=== PATIENT | female | born 1980 | race Caucasian/White ===

== ENCOUNTER 2018-11-21 18:29 | Emergency (ER) | payer OTHER, SELFPAY ==
[2018-11-21 18:30] VITALS: BP 151/85; PULSE 87; RESP 16; TEMP 36.6; O2SAT 100; BMI 27.1
--- NOTE | 2018-11-21 19:13 | CT_ITS ---
STUDY: CT ABDOMEN AND PELVIS WITHOUT CONTRAST REASON FOR EXAM: Female, 38 years old. Lower back pain RADIATION DOSAGE (If Supplied By Facility): CTDIvol = ( 8.99 ) mGy, DLP = ( 451.65 ) mGycm TECHNIQUE: Transaxial images were obtained from the dome of the diaphragm to the symphysis pubis without oral contrast, and without intravenous contrast. Sagittal and coronal images were reconstructed. Individualized dose optimization techniques were used for this CT. COMPARISON: 05/10/2017 FINDINGS: Evaluation of the abdominal viscera is limited in the absence of intravenous contrast. The visualized lung bases are clear. The visualized portions of the heart and pericardium are within normal limits. The patient is status post cholecystectomy. The liver demonstrates an unremarkable unenhanced appearance. The spleen is normal in size. The pancreas demonstrates an unremarkable unenhanced appearance. The adrenal glands are within normal limits. There is a 3 mm nonobstructing stone in the collecting system of the right kidney. There are no additional urinary stones. There is no hydronephrosis. Normal visualized stomach. There is no bowel obstruction or inflammation. The appendix is visualized and appears normal. The aorta is normal in caliber. There is a 3 cm right adnexal cyst. There is no abdominal or pelvic free air, free fluid, fluid collection or lymphadenopathy. There are no destructive osseous lesions. CT/Abdomen/Pelvis without Cont IMPRESSION: 3 cm right adnexal cyst. If indicated, further evaluation with ultrasound can be performed. 3 mm nonobstructing stone in the collecting system of the right kidney. No additional urinary calculi. No hydronephrosis. No bowel obstruction or inflammation. Normal appendix. Electronically Signed: Anton Dale, at 21:52 EST Tel , Service support ,
[2018-11-21] MEDS: Ondansetron 4 MG/2 ML Vial IV (19:22)
[2018-11-21] MEDS: 0.9% Normal Saline 1,000 ML 250 ML IV (19:22)
[2018-11-21] MEDS: Ketorolac 30 MG/ML Syringe IV (19:22)
[2018-11-21 19:29] LABS: Bacteria 0 SEEN /hpf (None Seen); White Blood Cells 0 SEEN /hpf (0-5)
[2018-11-21 19:30] LABS: Color, Urine Yellow (Yellow); Glucose, Dipstick Normal (Normal); Ketone-Dipstick Negative (Negative); Leukocyte Esterase-Dipstick Negative /ul (Negative); Nitrite-Dipstick Negative (Negative); Occult Blood-Urine 25 /ul (Negative); Protein-Dipstick Negative (Negative); Urine Bilirubin Dipstick Negative (Negative); Urine Clarity Clear (Clear); Urine Urobilinogen Normal (Normal)
[2018-11-21 19:31] LABS: Absolute Lymphocyte Count 3.23 X10^3/ul (0.83-4.51); Absolute Neutrophil Count 7.1 X10^3/uL (2.0-7.7); Basophil# 0.04 X10^3/uL; Basophil% 0.4 % (0-1); Eosinophils% 1.8 % (0-5); Hematocrit 40.1 % (37-47); Hemoglobin 12.9 g/dl (12.0-15.0); Lymphocyte # 3.23 X10^3/ul (4.0); Mean Corp Hgb Conc 32.2 g/gl (32-36); Mean Corpuscular Hgb 29.1 pg (27.0-32.0); Mean Corpuscular Volume 90.3 fL (81-99); Mean Platelet Vol. 11.3 fl (6.2-12.0); Monocyte# 0.56 X10^3/uL; Neutrophil # 7.11 X10^3/uL (2.7-7.7); Neutrophil % 63.7 % (47-70); Platelet Count 243 K/mm3 (150-450); RBC Distribution Width CV 12.8 % (11.6-14.6); RBC Distribution Width SD 42.1 fl (35.1-43.9); Red Blood Count 4.44 M/mm3 (4.2-5.4); White Blood Count 11.2 K/mm3 (4.4-11.0)
[2018-11-21 19:33] LABS: POSITIVE COUNT NO; POSITIVE DIFFERENTIAL NO; POSITIVE MORPHOLOGY NO
[2018-11-21 19:39] LABS: Mucous, Urine RARE /hpf (<or=2+); Red Blood Cells-Urine 0-5 SEEN /hpf (0-5); Squamous Epithelial Cells - UA 0-5 SEEN /hpf (5-10)
[2018-11-21 19:39] LABS: Anion Gap 9 (5-15); BUN 17 mg/dL (7-18); BUN/Creat Ratio 20.9 RATIO (10-20); Chloride 105 mmol/L (98-107); Creatinine, Serum 0.81 mg/dL (0.55-1.02); EST Glomerular Filtration Rate 85 mL/min (>60); Est Glom Filt Rate - Afr Amer 102 mL/min (>60); Estimated Creatinine Clearance 89.89 ml/min; Glucose 89 mg/dL (74-106); Potassium 3.7 mmol/L (3.5-5.1); Sodium Level 141 mmol/L (136-145)
[2018-11-21 20:32] LABS: Pregnancy, Serum, hCG Quali. NEGATIVE Negative (0-9 Nonpreg)
--- NOTE | 2018-11-21 22:06 | ED.DCSUM_ITS ---
- ER Visit Summary Date of Service: 11/21/18 Chief Complaint: Abdominal and flank pain History of Present Illness: The patient is a 38 F who presents with flank and abdominal pain that began today. Patient describes pain as sharp. Patient states the pain is over the lower abdomen and both flanks. Patient admits to some nausea but denies any vomiting. Patient denies any dysuria or hematuria. Patient denies any diarrhea, melena, or hematochezia. Patient admits to subjective chills but did not take her temperature. Physical Examination: Vital signs are stable. Patient is afebrile. Patient is in no acute distress. Oral mucosa is pink and moist. Neck is supple. Trachea is midline. No JVD noted. Heart was regular rate and rhythm. Lungs are clear and equal bilateral. Abdomen is soft. There is some lower abdominal tenderness. There is no rebound or guarding noted. Cranial nerves II through XII are intact. There are no focal motor or sensory deficits noted. The remaining physical exam is within normal limits. Test Results: CT scan of the abdomen and pelvis shows a right renal calculus but no obstruction. There is a 3 cm right adnexal cyst. The appendix is normal. CBC shows a white blood cell count of 11.2. Basic metabolic profile and urinalysis were normal. Emergency Department Course and Treatment: Patient was given IV fluids, Toradol, and Zofran. Patient was instructed to follow-up with her primary care physician in 5-7 days. Patient was instructed to drink plenty of fluids. Patient was instructed to return if worse in any way. Patient understood and was agreeable with the plan. All questions were answered. Disposition: Discharge home Impression: Abdominal pain This note was generated with [employer] dictation software. It may contain incorrect words, spelling, and punctuation that were not noted in review of the chart prior to signing ED Disposition - Plan for ED Patient: Disposition: Home or Assisted Living Diagnosis: Abdominal pain Instructions: ED Abdominal Pain Unkn Cause Referrals: Naman Paez MD [Primary Care Provider] -
[2018-11-21 22:15] VITALS: BP 128/70; PULSE 77; RESP 16
== END 2018-11-21 22:15 | disposition home or self-care (01) ==
PROVIDERS: Emergency Provider Emergency Medicine; Family Provider Family Medicine; PCP Family Medicine
DX: N20.0 Calculus of kidney (principal); N85.8 Other specified noninflammatory disorders of uterus; R10.30 Lower abdominal pain, unspecified; K21.9 Gastro-esophageal reflux disease without esophagitis; F41.9 Anxiety disorder, unspecified; Z72.0 Tobacco use
CPT/HCPCS: 74176; 80048; 81001; 84703; 85025; 96361; 96374; 96375; 99283; J7030; A4216; J2405

== ENCOUNTER 2019-08-16 09:27 | Emergency (ER) | payer OTHER, SELFPAY ==
[2019-08-16 09:27] VITALS: BP 105/58; PULSE 105; RESP 20; TEMP 36.3; O2SAT 97; BMI 29.7
--- NOTE | 2019-08-16 09:42 | CT_ITS ---
STUDY: CTA CHEST REASON FOR EXAM: Female, 39 years old. Shortness of breath. RADIATION DOSAGE (If Supplied By Facility): CTDIvol = ( 13.10 ) mGy, DLP = ( 443.48 ) mGycm TECHNIQUE: The examination was performed with the intravenous administration of IV Isovue 370 100. Post-processing of the angiographic images was performed, with multiplanar reformation. Individualized dose optimization techniques were used for this CT. COMPARISON: None. FINDINGS: There is limited enhancement of the main pulmonary artery and right and left pulmonary arteries. There is limited enhancement of the bilateral peripheral pulmonary arteries. There is no demonstrated pulmonary embolism. Normal thoracic aorta and visualized great vessels. There is no demonstrated aortic dissection. Normal heart and pericardium. Normal mediastinum. Normal hilar regions. Normal visualized trachea and bronchi. The lungs are well expanded. There are no pulmonary infiltrates. There is linear subsegmental atelectasis in the right lower lobe. There are no pleural effusions. Normal chest wall structures. The osseous structures is no acute process. There is a small sclerotic lesion in the vertebral body of T7 likely due to bone island. Normal visualized upper abdomen. CT/CTA Chest W/WO Contrast IMPRESSION: 1. Suboptimal enhancement of the pulmonary arteries. No evidence of pulmonary embolism. 2. Subsegmental atelectatic changes in right lower lobe. 3. No infiltrate or pleural effusions are seen. Electronically Signed: Macho Bray MD at 10:47 EST Tel , Service support ,
[2019-08-16 09:55] LABS: Absolute Lymphocyte Count 1.96 X10^3/uL (0.83-4.51); Absolute Neutrophil Count 5.2 X10^3/uL (2.0-7.7); Basophil# 0.05 X10^3/uL; Basophil% 0.6 % (0-1); Eosinophil# 0.16 X10^3/uL; Eosinophils% 2.1 % (0-5); Hemoglobin 14.4 g/dL (12.0-15.0); Lymphocyte # 1.96 X10^3/ul (4.0); Lymphocyte % 25.3 % (19-41); Mean Corp Hgb Conc 33.5 g/dL (32-36); Mean Corpuscular Hgb 29.2 pg (27.0-32.0); Mean Corpuscular Volume 87.2 fL (81-99); Monocyte# 0.34 X10^3/uL; Monocyte% 4.4 % (0-10); NRBC Flagged by Analyzer 0 % (0-5); Neutrophil # 5.23 X10^3/uL (2.7-7.7); Neutrophil % 67.3 % (47-70); Platelet Count 272 K/mm3 (150-450); RBC Distribution Width CV 12.3 % (11.6-14.6); RBC Distribution Width SD 38.9 fl (35.1-43.9); Red Blood Count 4.93 M/mm3 (4.2-5.4); White Blood Count 7.8 K/mm3 (4.4-11.0)
[2019-08-16 10:04] VITALS: BP 107/75; PULSE 89; RESP 20; TEMP 36.3; O2SAT 97
[2019-08-16 10:07] LABS: Anion Gap 7 (5-15); BUN 9 mg/dL (7-18); BUN/Creat Ratio 11.1 RATIO (10-20); Calcium,Total 9.4 mg/dL (8.5-10.1); Chloride 108 mmol/L (98-107); Creatinine, Serum 0.81 mg/dL (0.55-1.02); EST Glomerular Filtration Rate 84 mL/min (>60); Est Glom Filt Rate - Afr Amer 102 mL/min (>60); Estimated Creatinine Clearance 85.57 ml/min; Glucose 100 mg/dL (74-106); Potassium 3.7 mmol/L (3.5-5.1); Sodium Level 140 mmol/L (136-145)
[2019-08-16] MEDS: 0.9% Normal Saline 1,000 ML 150 ML IV (10:09)
--- NOTE | 2019-08-16 12:21 | ED.VIS.GEN ---
History of Present Illness Chief Complaint: Shortness of Breath Detail of Chief Complaint: Cough and shortness of breath Informant: Patient Onset: Weeks Context: Gradual Onset Timing: Waxes and wanes Current Severity: Moderate Maximum Severity: Moderate Narrative: Patient presents with concerns of shortness of breath and pneumonia. She is had a cough for the past 2 weeks. Approximately 4 days ago she started feeling worse. She was seen by her doctor and diagnosed with pneumonia. She states there was a small infiltrate noted on her x-ray. She was treated with Z-Celio, prednisone, and an inhaler. She is also given acyclovir for cold sore. Patient states that she felt better yesterday but today symptoms were worse again. She denies coughing up any sputum. She only had fever on one occasion. She does have a history of smoking and states that she previously used a vape pen. She last used her vape pen 4 days ago. - Past Medical History (1) GERD (gastroesophageal reflux disease) Status: Chronic (2) Depression Status: Chronic Past Medical History - Allergies and Home Meds Allergies/Adverse Reactions: Allergies bupropion [From Wellbutrin] Adverse Reaction (Verified 08/16/19 09:29) Low blood pressure Primary Care Physician: Naman Paez MD [Primary Care Provider] - 3-5 Days if not improving Prior records reviewed: Yes Smoking Status: Current every day smoker Review of Systems General: Reports: Fever - On one occasion. Denies: Chills Eyes: Denies: Visual changes - bilaterally ENT: Denies: Bilateral ear pain, Sore throat Cardiovascular: Denies: Chest pain Respiratory: Reports: Dyspnea, Cough. Denies: Sputum Gastrointestinal: Denies: Abdominal pain, Nausea, Vomiting, Diarrhea Genitourinary: Denies: Dysuria Musculoskeletal: Denies: Swelling, Extremity Pain Skin: Denies: Rash Neurological: Denies: Headache Allergy: Denies: Uticaria Physical Exam Vital Signs/Narrative: Vital Signs Temp Pulse Resp BP Pulse Ox 08/16/19 10:04 97.4 F L 89 20 H 107/75 97 08/16/19 09:27 97.4 F L 105 H 20 H 105/58 L 97 Inital Vital Signs reviewed: Yes General: Well nourished, Well developed Head: Normocephalic ENT: Moist mucous membranes Neck: Supple Cardiovascular: Regular rate, Regular rhythm Respiratory: No distress, CTA bilaterally Abdomen: Soft, Nontender, Normal bowel sounds Back: Nontender Extremities: Nontender, No edema Skin: Normal color, No rash Neurological: Alert, Oriented x3 Psychological: Normal affect Diagnostic/Tx/Re-eval Impressions Chest CTA 08/16/19 09:42 IMPRESSION: 1. Suboptimal enhancement of the pulmonary arteries. No evidence of pulmonary embolism. 2. Subsegmental atelectatic changes in right lower lobe. 3. No infiltrate or pleural effusions are seen. Electronically Signed: Macho Bray MD at 10:47 EST Tel , Service support , 08/16/19 09:42 CTA Chest W/WO Contrast [CT] Stat Laboratory Results 08/16/19 08/16/19 09:50 09:50 WBC 7.8 RBC 4.93 Hgb 14.4 Hct 43.0 MCV 87.2 MCH 29.2 MCHC 33.5 RDW Std Deviation 38.9 RDW Coeff of Allison 12.3 Plt Count 272 MPV 11.0 Immature Gran % (Auto) 0.300 Neut % (Auto) 67.3 Lymph % (Auto) 25.3 [place] % (Auto) 4.4 Eos % (Auto) 2.1 Baso % (Auto) 0.6 Absolute Neuts (auto) 5.2 Absolute Lymphs (auto) 1.96 Nucleated RBC % 0 Sodium 140 Potassium 3.7 Chloride 108 H Carbon Dioxide 25.0 Anion Gap 7 BUN 9 Creatinine 0.81 Estim Creat Clear Calc 85.57 Est GFR (MDRD) Af Amer 102 Est GFR (MDRD) Non-Af 84 BUN/Creatinine Ratio 11.1 Glucose 100 Calcium 9.4 - Medical Decision Making With the patient's history of using a vape pen was concerned about inflammatory lung reaction. CT of the chest was obtained. There is no evidence of significant lung change. There is no evidence of infiltrate at this time. Test results are discussed with the patient. She is reassured with these findings and will continue her medication course. She will follow-up with her primary care physician. ED Disposition - Plan for ED Patient: Disposition: Home or Assisted Living Diagnosis: Bronchitis Instructions: BRONCHITIS, Antiobiotic Treatment (Adult) Referrals: Naman Paez MD [Primary Care Provider] - 3-5 Days if not improving
[2019-08-16 12:37] VITALS: BP 100/74; PULSE 74; RESP 18; O2SAT 97
== END 2019-08-16 12:40 | disposition home or self-care (01) ==
PROVIDERS: Emergency Provider Emergency Medicine; Family Provider Family Medicine; PCP Family Medicine
DX: J40 Bronchitis, not specified as acute or chronic (principal); J98.11 Atelectasis; F32.9 Major depressive disorder, single episode, unspecified; K21.9 Gastro-esophageal reflux disease without esophagitis; Z79.899 Other long term (current) drug therapy; F17.200 Nicotine dependence, unspecified, uncomplicated
CPT/HCPCS: 71275; 80048; 85025; 96360; 96361; 99284; J7030; Q9967

== ENCOUNTER 2019-10-22 13:06 | Emergency (ER) | payer OTHER, SELFPAY ==
[2019-10-22 13:08] VITALS: BP 113/94; PULSE 107; RESP 18; TEMP 37.3; O2SAT 99; BMI 30.2
--- NOTE | 2019-10-22 13:40 | CT_ITS ---
STUDY: CT ABDOMEN AND PELVIS WITH CONTRAST REASON FOR EXAM: Female, 39 years old. RLQ PAIN/RT HIP PAIN X 3 WEEKS. Prior cholecystectomy. No HTN or diabetes RADIATION DOSAGE (If Supplied By Facility): CTDIvol = ( 15.18 ) mGy, DLP = ( 1033.58 ) mGycm TECHNIQUE: Transaxial images were obtained from the dome of the diaphragm to the symphysis pubis without oral contrast. Oral and amp; IV Gastrografin and amp; 100mL Isovue-300 was administered. Sagittal and coronal images were reconstructed. Individualized dose optimization techniques were used for this CT. COMPARISON: Comparison is made with prior examination dated November 21, 2018. FINDINGS: The visualized lung bases are unremarkable. The visualized portions of the heart are within normal limits. Normal liver. There are surgical clips in the gallbladder fossa consistent with a prior cholecystectomy. Minimally dilated central intrahepatic biliary ducts most likely secondary to the post cholecystectomy state. Normal spleen. Normal pancreas. Normal bilateral adrenal glands. Normal right kidney. Normal left kidney. Normal visualized stomach. Normal small intestine. Normal colon. The appendix is visualized and appears normal. Normal abdominal aorta. Normal inferior vena cava. Normal retroperitoneum. Normal urinary bladder. Small follicles are seen in both ovaries. The largest follicle in the left ovary measures 1.8 cm. The largest follicle in the right ovary measures 1.4 cm. There is a small umbilical hernia containing fat. Small bilateral inguinal lymph nodes. Normal osseous structures. CT/Abdomen/Pelvis WITH Contrast IMPRESSION: Status post cholecystectomy with minimal dilatation of the intrahepatic biliary ducts. Findings suggestive of small bilateral ovarian follicles. Electronically Signed: John Bella, at 15:53 EST , Service support ,
[2019-10-22] MEDS: Morphine 4 MG/ML Syringe IV (14:22)
[2019-10-22] MEDS: Ondansetron 4 MG/2 ML Vial IV ×2 (14:22→15:18)
[2019-10-22] MEDS: 0.9% Normal Saline 1,000 ML 1000 ML IV (14:22)
[2019-10-22 14:26] LABS: Mucous, Urine 0 SEEN /hpf (<or=2+); Red Blood Cells-Urine 0 SEEN /hpf (0-5); White Blood Cells 0 SEEN /hpf (0-5)
[2019-10-22 14:30] LABS: Color, Urine Straw (Yellow); Glucose, Dipstick Normal (Normal); Ketone-Dipstick Negative (Negative); Leukocyte Esterase-Dipstick Negative /ul (Negative); Nitrite-Dipstick Negative (Negative); Occult Blood-Urine 10 /ul (Negative); Protein-Dipstick Negative (Negative); Urine Bilirubin Dipstick Negative (Negative); Urine Clarity Sl. Cloudy (Clear); Urine Urobilinogen Normal (Normal)
[2019-10-22 14:31] LABS: Absolute Lymphocyte Count 2.25 X10^3/uL (0.83-4.51); Absolute Neutrophil Count 7.3 X10^3/uL (2.0-7.7); Basophil# 0.06 X10^3/uL; Basophil% 0.6 % (0-1); Eosinophil# 0.19 X10^3/uL; Eosinophils% 1.9 % (0-5); Hemoglobin 14.8 g/dL (12.0-15.0); Lymphocyte # 2.25 X10^3/ul (4.0); Mean Corp Hgb Conc 32.9 g/dL (32-36); Mean Corpuscular Hgb 29.4 pg (27.0-32.0); Mean Corpuscular Volume 89.5 fL (81-99); Mean Platelet Vol. 11.4 fl (6.2-12.0); Monocyte# 0.41 X10^3/uL; NRBC Flagged by Analyzer 0 % (0-5); Neutrophil # 7.28 X10^3/uL (2.7-7.7); Neutrophil % 71.1 % (47-70); Platelet Count 291 K/mm3 (150-450); RBC Distribution Width CV 12.1 % (11.6-14.6); RBC Distribution Width SD 39.5 fl (35.1-43.9); Red Blood Count 5.03 M/mm3 (4.2-5.4); White Blood Count 10.2 K/mm3 (4.4-11.0)
[2019-10-22 14:41] LABS: Internal QC Validated? YES +Cl - CLEAR BKGD; Pregnancy, Serum, hCG Quali. NEGATIVE Negative
[2019-10-22 14:42] LABS: Anion Gap 4 (5-15); BUN 12 mg/dL (7-18); BUN/Creat Ratio 14.4 RATIO (10-20); Calcium,Total 9.4 mg/dL (8.5-10.1); Chloride 106 mmol/L (98-107); Creatinine, Serum 0.84 mg/dL (0.55-1.02); EST Glomerular Filtration Rate 81 mL/min (>60); Est Glom Filt Rate - Afr Amer 99 mL/min (>60); Estimated Creatinine Clearance 82.51 ml/min; Glucose 95 mg/dL (74-106); Potassium 3.4 mmol/L (3.5-5.1); Sodium Level 138 mmol/L (136-145)
[2019-10-22 14:49] LABS: Bacteria 1+ /hpf (None Seen); Squamous Epithelial Cells - UA 0-5 SEEN /hpf (5-10)
[2019-10-22] MEDS: HYDROmorphone 1 MG/ML Syringe IV (15:19)
--- NOTE | 2019-10-22 15:38 | ED.VISSUMM ---
- ER Visit Summary Date of Service: 10/22/19 Chief Complaint: Groin pain History of Present Illness: The patient is a 39 F who sees Abner Espinosa. She reports she has right hip pain that began 3 weeks ago. States that it is an aching pain that comes and goes. Says lasts hours at a time. Is been constant since yesterday. States is 10 out of 10 at worst and 4-10 currently. Is worsened by walking and movement. Is relieved by rest. Patient reports that last week she had an adjustment by Abner Espinosa in the office and did get significant relief from this. She denies any back pain. No numbness or weakness. No trauma. No fall, MVA, or change in activity. Physical Examination: Vitals: Stable. Afebrile. General: Well-nourished and well-developed. Head: Normocephalic atraumatic. Neck: Supple, no lymphadenopathy. No JVD. Nontender. Cardiovascular: Regular rate and rhythm. No murmurs. Respiratory: No respiratory distress. Clear to auscultation bilaterally. Abdominal: Soft, moderate right lower quadrant tenderness to palpation, moderate tenderness palpation in the right inguinal region. No palpable hernia., nondistended, normal bowel sounds. No guarding, rebound, or peritoneal signs. Back: Nontender. Extremities: Nontender, no edema. No pain with palpation over her right greater trochanter. No pain with internal or external rotation of her hip. Skin: Normal color, no rash. Neurologic: Alert and oriented ?3. Cranial nerves II through XII are intact. Normal strength and sensation. Psych: Normal affect. Test Results: CBC shows segmented for 71. Chem-7 shows potassium of 3.4. UA shows 1+ bacteria. test is negative. Clinical Impression(s) from Imaging Studies Abdomen/Pelvis CT 10/22/19 13:40 IMPRESSION: Status post cholecystectomy with minimal dilatation of the intrahepatic biliary ducts. Findings suggestive of small bilateral ovarian follicles. Electronically Signed: John Bella, at 15:53 EST , Service support , Emergency Department Course and Treatment: Patient was treated with morphine and Zofran IV. She is resting more comfortably. Treatment Plan: Prolonged discussion with patient and her significant other that at this time I do not have an explanation for her pain. She will be discharged with naproxen, Bradley, Zofran. Instructed to follow-up with her primary care physician in 1 to 2 days if not improving. Return to the emergency department for any worsening symptoms. Disposition: To home in improved and stable condition. Impression: 1. Abdominal pain, uncertain cause. This note was generated with [employer] dictation software. It may contain incorrect words, spelling, and punctuation that were not noted in review of the chart prior to signing ED Disposition - Plan for ED Patient: Disposition: Home or Assisted Living Instructions: ABDOMINAL PAIN, Unknown Cause, (Female) Prescriptions: Naproxen [Naprosyn] 500 mg PO BID #14 tab Prescription Printed Hydrocodone Bitart/Apap 5-325 [Bradley 5MG-325MG] 1 tab PO Q4H PRN PRN 2 Days #10 tab PRN Reason: Pain Prescription Printed Ondansetron [Zofran Odt] 4 mg PO Q8H PRN PRN #10 tab PRN Reason: Nausea Prescription Printed Referrals: Naman Paez MD [Primary Care Provider] - 1-2 Days if not improving
[2019-10-22 16:15] VITALS: BP 97/56; PULSE 82; RESP 16; O2SAT 97
== END 2019-10-22 16:29 | disposition home or self-care (01) ==
LOC: ED 13:58
PROVIDERS: Emergency Provider Emergency Medicine; PCP Family Medicine
DX: M25.551 Pain in right hip (principal); R10.31 Right lower quadrant pain; R11.0 Nausea; R68.83 Chills (without fever); Z90.49 Acquired absence of other specified parts of digestive tract; F17.200 Nicotine dependence, unspecified, uncomplicated
CPT/HCPCS: 74177; 80048; 81001; 84703; 85025; 96361; 96374; 96375; 96376; 99284; J7030; Q9967; A4216; J2405

== ENCOUNTER → 2021-07-17 | Outpatient (CLI) | payer OTHER, SELFPAY | END | disposition home or self-care (01) | LOC: LABSPEC 14:42 | PROVIDERS: PCP Family Medicine; Referring Provider Physician Assistant; Visit Provider Physician Assistant | DX: Z11.52 Encounter for screening for COVID-19 (principal) | CPT/HCPCS: 87635; U0005; U0003 ==

== ENCOUNTER 2022-05-02 18:00 | Outpatient (RCR) | payer OTHER, SELFPAY ==
--- NOTE | 2022-02-28 19:02 | HP.PTEVAL ---
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 Date of Evaluation: 02/28/22 Physical Therapist: WASHINGTON Meléndez - Visit Plan Frequency: 2-3x /Week Duration: 6 Weeks Plan: 1-3X/ week for reduction in swelling, (possible MT), R ankle AROM, stretching, strengthening, desensitization, gait training with HEP. (pt has a call into her Dr about when she can get out of the boot... most likey not until return to Dr on March 19. HEP: AP, INV/EV, seated heel and toe raises, gastroc stretch, towel scrunches - Subjective Pt did not do anything to hurt herself and always had sore feet due to being flat footed. Before [place] It felt like she hit her medial maleolus and then it started to bruise and then her foot and calf was huge. Regular Dr X-rays, prednizone... did not help. Went to [facility] and did an MRI and it showed all white on medial side of her ankle and her tendons had severe thickening. The surgeon went in and detached all of her tendons, and re attached them and he basically moved her ankle bones with 2 titanium screws and the DOS was December 06. She was NWB until last Saturday (Dr said do 10-20-20-40% body weight and go down to [address] did not say when she can be full weight bearing. She sees the Dr on March 19. She leaves for a beach vacation on March 12. She feels that she is putting 40% weight through her R leg and she does not walk on it everyday. She works from home at a desk. If she is out and she will still use her knee scooter. The heel of her foot hurts when she walks. She has pain in other places. She has stairs at home to get into the home... she walks up the hill to get into the house. She does not walk very much at home. Pt walks with a walking boot about 40% WB with cane in R hand. I switched her cane from the R hand to the L hand and pt walked much more fluid. - Pain R foot pain Pain Intensity (Out of 10): 0 Pain Intensity Range: 6 R heel pain Pain Intensity (Out of 10): 8 Pain Intensity Range: 10 - Objective Gait: Walks with cane in R hand and in a walking boot with not a very smooth gait pattern and more of a limp. I switched the cane from the R hand to the L hand and pt walked with more of a normal gait pattern. R: 54.1 figure 8, 25 med to lat mal, met heads 24.2. L: 48.5, 23.6met heads 21.5. R AROM: -6 degrees from full DF and 31 degrees PF, INV 14 and EV 4. L AROM: 10 DF, 55 PF, INV 40 EV 12. MMT was not tested. Pt's R foot was more pink tint to it then the L foot. Pt was hyper sensitive to light touch sensation on the R foot. Some scar adhesions on the medial side of her foot at the scar on the R foot. Pt was painful with basic AROM motions - Balance/Special Test Scores Lower Extremity Functional Score: 17 - Goals Goal 1:: I HEP Goal Time Frame: 4-6 Weeks Goal 2:: Pt to be able to walk with a normal gait pattern without the boot or AD Goal Time Frame: 6-8 Weeks Goal 3:: Increase R ankle AROM to 5 degrees DF Goal Time Frame: 6-8 Weeks Goal 4:: Increase R ankle strength to be able to complete 3 X 10 standing heel adn toe raises when able to full weight bear Goal Time Frame: 6-8 Weeks - Rehabilitation Potential Rehabilitation Potential: Good - Anticipated Interventions Patient/Client Instruction: Educate patient on: Condition, Plan of Care For the Purpose of:: To decrease pain, To decrease swelling/inflammation, To increase ROM, To improve nutrient delivery to tissue, To improve muscle performance and motor function, To improve ability to perform ADL's, To increase tolerance to activity/condition/position, To improve performance and independence with ADL's, To decrease level of supervision to perform tasks, To improve ability of physical actions for home/community/work/leisure, To improve gait and locomotor functions, To improve health of tissue, To decrease soft tissue restriction, To increase flexibility/ROM, To improve endurance, To improve balance, To improve safety with gait Therapeutic Exercise to Include: Strength training, Endurance training, Balance training, Flexibilty training, Gait and locomotor training, Neuromotor development, Passive ROM, Active ROM For the Purpose of:: To decrease pain, To decrease swelling/inflammation, To increase ROM, To improve nutrient delivery to tissue, To improve muscle performance and motor function, To improve ability to perform ADL's, To increase tolerance to activity/condition/position, To improve performance and independence with ADL's, To decrease level of supervision to perform tasks, To improve ability of physical actions for home/community/work/leisure, To improve gait and locomotor functions, To improve health of tissue, To decrease soft tissue restriction, To increase flexibility/ROM, To improve balance, To improve safety with gait Functional Training to Include: Gait training For the Purpose of:: To improve gait and locomotor functions, To improve safety with gait Manual Therapy Techniques to Include: Passive ROM, Soft tissue mobilization For the Purpose of:: To decrease pain, To increase ROM, To improve nutrient delivery to tissue, To improve muscle performance and motor function, To improve ability to perform ADL's, To increase tolerance to activity/condition/position, To improve performance and independence with ADL's, To decrease level of supervision to perform tasks, To improve gait and locomotor functions, To improve health of tissue, To decrease soft tissue restriction, To increase flexibility/ROM Cryotherapy (ice pack, ice massage): Yes Vasopneumatic device: Yes For the Purpose of:: To decrease pain, To decrease swelling/inflammation, To increase ROM, To improve nutrient delivery to tissue, To improve muscle performance and motor function, To improve ability to perform ADL's, To increase tolerance to activity/condition/position, To improve performance and independence with ADL's Thank you for the opportunity to evaluate your patient. For Medicare and Medicare HMO plans, please review the plan of care and approve it. It will need to be FAXED BACK to us at [phone] for Medicare purposes. For Medicare only, by signing this I certify the plan of care. Please let me know if there are questions or concerns regarding this plan of care. Physician Signature: Date:
--- NOTE | 2022-06-25 10:59 | HP.PTDCNRP_ITS ---
MAINE HARDEN was seen in my office for initial evaluation on 02/28/22. The following Plan of Care was established for this patient: Initial Frequency: 2-3x /Week Initial Duration: 6 Weeks Patient/Client Instruction: Educate patient on: Condition, Plan of Care For the Purpose of:: To decrease pain, To decrease swelling/inflammation, To increase ROM, To improve nutrient delivery to tissue, To improve muscle performance and motor function, To improve ability to perform ADL's, To increase tolerance to activity/condition/position, To improve performance and independence with ADL's, To decrease level of supervision to perform tasks, To improve ability of physical actions for home/community/work/leisure, To improve gait and locomotor functions, To improve health of tissue, To decrease soft tissue restriction, To increase flexibility/ROM, To improve endurance, To impro ve balance, To improve safety with gait Therapeutic Exercise to Include: Strength training, Endurance training, Balance training, Flexibilty training, Gait and locomotor training, Neuromotor development, Passive ROM, Active ROM For the Purpose of:: To decrease pain, To decrease swelling/inflammation, To increase ROM, To improve nutrient delivery to tissue, To improve muscle performance and motor function, To improve ability to perform ADL's, To increase tolerance to activity/condition/position, To improve performance and independence with ADL's, To decrease level of supervision to perform tasks, To improve ability of physical actions for home/community/work/leisure, To improve gait and locomotor functions, To improve health of tissue, To decrease soft tissue restriction, To increase flexibility/ROM, To improve balance, To improve safety with gait Functional Training to Include: Gait training For the Purpose of:: To improve gait and locomotor functions, To improve safety with gait Manual Therapy Techniques to Include: Passive ROM, Soft tissue mobilization For the Purpose of:: To decrease pain, To increase ROM, To improve nutrient delivery to tissue, To improve muscle performance and motor function, To improve ability to perform ADL's, To increase tolerance to activity/condition/position, To improve performance and independence with ADL's, To decrease level of supervision to perform tasks, To improve gait and locomotor functions, To improve health of tissue, To decrease soft tissue restriction, To increase flexibility/ROM Cryotherapy (ice pack, ice massage): Yes Vasopneumatic device: Yes For the Purpose of:: To decrease pain, To decrease swelling/inflammation, To increase ROM, To improve nutrient delivery to tissue, To improve muscle performance and motor function, To improve ability to perform ADL's, To increase tolerance to activity/condition/position, To improve performance and independence with ADL's This patient was last seen in our office 05/02/22. Pertinent comments regarding their Physical therapy will appear below: DC PT as pt was going back to the Dr At this point I will be discontinuing this patient from physical therapy. I would be happy to see this patient again in the future if found appropriate by the physician. Thank you! Stephanie Baker, [place] Balance/Gait/Functional tests - Balance/Special Test Scores Lower Extremity Functional Score: 17
== END 2022-05-02 19:00 | disposition home or self-care (01) ==
LOC: PT 18:00
PROVIDERS: PCP Family Medicine
DX: M76.821 Posterior tibial tendinitis, right leg (principal)
CPT/HCPCS: 97110; 97140; 97161